=== PATIENT | male | born 1980 ===

== ENCOUNTER 2017-06-24 09:04 | Emergency (ER) | payer SELFPAY ==
[2017-06-24 09:05] VITALS: BMI 29.9
[2017-06-24 09:26] VITALS: RESP 16
[2017-06-24] MEDS ORDERED: Sodium Chloride 0.9% 1,000 ML IV STA (09:34)
[2017-06-24] MEDS ORDERED: Lidocaine 5% Patch TD STA (09:34)
--- NOTE | 2017-06-24 10:07 | ED PDOC ---
Lower Extremity Pain/Injury Time Seen by Provider: 06/24/17 09:20 Chief Complaint (Nursing): Lower Extremity Problem/Injury Chief Complaint (Provider): Right ankle pain History Per: Patient History/Exam Limitations: no limitations Onset/Duration Of Symptoms: Days (x 3) Current Symptoms Are (Timing): Still Present Additional Complaint(s): Bernardo is a 37 y/o male who presents to the ED complaining of right ankle pain, onset 3 days ago. Denies numbness, tingling, nausea, vomiting, and fever. Patient has a history of toe, foot, and knee pain to both lower extremities in the past. Seen here in the clinic and taking Allopurinol and Naprosyn, last dose was yesterday. Feels like his gout that he has had in the past. PMD: Unknown Past Medical History Reviewed: Historical Data, Nursing Documentation, Vital Signs Vital Signs: Last Vital Signs Temp 97 F L 06/24/17 09:23 Pulse 82 06/24/17 09:23 Resp 16 06/24/17 09:23 BP 131/76 06/24/17 09:23 Pulse Ox 99 06/24/17 09:23 - Medical History Other PMH: Gout - Surgical History Surgical History: Appendectomy - Family History Family History: States: Unknown Family Hx - Social History Current smoker - smoking cessation education provided: No Alcohol: Social Drugs: Denies - Home Medications Home Medications: Ambulatory Orders Medication Instructions Recorded Indomethacin [Indocin] 50 mg PO TID #42 cap 10/24/16 Ibuprofen [Motrin] 600 mg PO TID 7 Days 06/24/17 Methylprednisolone [Medrol Dose 4 mg PO DAILY #21 mg 06/24/17 Pack (21 tabs)] - Allergies Allergies/Adverse Reactions: Allergies Allergy/AdvReac Type Severity Reaction Status Date / Time No Known Allergies Allergy Verified 06/24/17 09:23 Review of Systems ROS Statement: Except As Marked, All Systems Reviewed And Found Negative Constitutional: Negative for: Fever Gastrointestinal: Negative for: Nausea, Vomiting, Diarrhea Musculoskeletal: Negative for: Foot Pain (Right ankle pain) Neurological: Negative for: Numbness, Other (Tingling) Physical Exam - Reviewed Nursing Documentation Reviewed: Yes Vital Signs Reviewed: Yes - Physical Exam Appears: Positive for: Non-toxic, No Acute Distress Head Exam: Positive for: ATRAUMATIC, NORMAL INSPECTION, NORMOCEPHALIC Skin: Positive for: Normal Color, Warm, Dry Neck: Positive for: Normal, Painless ROM, Supple Cardiovascular/Chest: Positive for: Regular Rate, Rhythm. Negative for: Murmur Respiratory: Positive for: Normal Breath Sounds. Negative for: Accessory Muscle Use, Respiratory Distress Pulses-Dorsalis Pedis (L): 2+ Pulses-Dorsalis Pedis (R): 2+ Pulses-Post. Tibialis (L): 2+ Pulses-Post. Tibialis (R): 2+ Extremity: Positive for: Normal ROM, Swelling (Mild swelling and tender to the anterior and medial ankle). Negative for: Tenderness (to the foot or toe), Other (erythema) Neurologic/Psych: Positive for: Alert, Oriented - Laboratory Results Result Diagrams: 06/24/17 10:30 06/24/17 10:44 Interpretation Of Abn Labs: no acute - ECG O2 Sat by Pulse Oximetry: 99 (RA) Pulse Ox Interpretation: Normal - Radiology X-Ray: Interpreted by Me, Viewed By Me X-Ray Interpretation: No Acute Disease - Progress ED Course And Treament: 1530: Stable. Podiatry saw pt. Did a pain med injection. Fu with them in 1 week. Medical Decision Making Medical Decision Making: Time: 09:43 Initial Plan: --CMP --Uric acid --CBC --Lidocaine 5% topical cream --NS IV 1000 ml at 1000 mls/hr --Toradol 15 mg IV --Tylenol 975 mg PO --Pending reevaluation Scribe Attestation: Documented by Melissa Cleary, acting as a scribe for Chetan Grubbs MD Provider Scribe Attestation: All medical record entries made by the Scribe were at my direction and personally dictated by me. I have reviewed the chart and agree that the record accurately reflects my personal performance of the history, physical exam, medical decision making, and the department course for this patient. I have also personally directed, reviewed, and agree with the discharge instructions and disposition. Disposition - Clinical Impression Clinical Impression: Gout - Patient ED Disposition Is Patient to be Admitted: No Counseled Patient/Family Regarding: Studies Performed, Diagnosis, Need For Followup, Rx Given - Disposition Referrals: Podiatry Clinic [Outside] - 07/01/17 Disposition: Routine/Home Disposition Time: 13:52 Condition: STABLE Additional Instructions: Return if not better in 3 days. Prescriptions: Ibuprofen [Motrin] 600 mg PO TID 7 Days Methylprednisolone [Medrol Dose Pack (21 tabs)] 4 mg PO DAILY #21 mg Instructions: Gout (ED) Forms: [employer] (Bengali) Print Language: SLOVAK
[2017-06-24 10:41] LABS: BASO # 0.1 K/uL (0.0-0.2); BASO % 0.8 % (0.0-2.0); EOS # 0.4 K/uL (0.0-0.7); HEMOGLOBIN 15.2 g/dL (12.0-18.0); LYMPH # 1.9 K/uL (1.0-4.3); LYMPH % 26.1 % (20.0-40.0); MEAN CELL VOLUME 89.2 fl (80.0-94.0); MEAN CORPUSCULAR HEMOGLOBIN 30.5 pg (27.0-31.0); MEAN CORPUSCULAR HGB CONC 34.2 g/dL (33.0-37.0); MEAN PLATELET VOLUME 8.7 fl (7.2-11.7); MONO # 0.6 K/uL (0.0-0.8); MONO % 8.1 % (0.0-10.0); NEUT # 4.4 K/uL (1.8-7.0); NRBC % 0.1 % (0.0-0.0); RBC 4.99 Mil/uL (4.40-5.90); RED CELL DISTRIBUTION WIDTH 13.8 % (11.5-14.5); WHITE BLOOD COUNT 7.3 K/uL (4.8-10.8)
[2017-06-24 11:15] LABS: ALB/GLOB RATIO 1.3 (1.0-2.1); ALBUMIN 4.1 g/dL (3.5-5.0); ALT/SGPT 35 U/L (21-72); AST/SGOT 28 U/L (17-59); BLOOD UREA NITROGEN 12 mg/dl (9-20); CALCIUM 9.7 mg/dL (8.4-10.2); GFR AFRICAN-AMERICAN > 60; GFR NON-AFRICAN AMERICAN > 60; URIC ACID 7.9 mg/Dl (3.5-8.5)
[2017-06-24] MEDS ORDERED: Morphine 4 MG/ML VIAL IV ONE (12:58)
[2017-06-24] MEDS ORDERED: Morphine 4 MG/ML VIAL ONE (14:12)
[2017-06-24] MEDS ORDERED: Lidocaine 1% Inj (20ml) IJ ONE (14:19)
[2017-06-24] MEDS ORDERED: MethylPREDNISolone Depo 40 mg/ml Inj IM ONE (14:19)
--- NOTE | 2017-06-24 14:30 | RAD ---
PROCEDURE: Right ankle Radiographs. HISTORY: pain COMPARISON: None. FINDINGS: BONES: Normal. No fracture. JOINTS: Normal. No dislocation. SOFT TISSUES: Lateral ankle sprain. OTHER FINDINGS: None. IMPRESSION: Lateral ankle sprain.
[2017-06-24] MEDS ORDERED: Lidocaine 1% Inj (20ml) ONE (15:42)
[2017-06-24] MEDS ORDERED: MethylPREDNISolone Depo 40 mg/ml Inj ONE (15:42)
[2017-06-24 16:24] VITALS: BP 118/77; PULSE 65; TEMP 98.1; O2SAT 98
--- NOTE | 2017-06-24 19:42 | CP.PCM.CON ---
History of Present Illness - History of Present Illness History of Present Illness: 37 year old male with PMH of gout and gouty attacks present to the ED for right ankle pain. Patient denies any trauma or fall. States that pain started 5 days ago, but 3 days ago, the pain became unbearable. He describes the pain as an achy pain, worse with ambulation. Patient reports the pain is similar to the previous gouty attacks he has had in the past: his right knee and right 1st MPJ. He states that he is currently talking Allopurinol to manage his gout. He states that he drinks socially; avoid eating too much red meats, reports chicken in his main diet. He denies n/v/sob/cp/chills or f. PMH: gout PSH: appendectomy FH: denies SH: denies smoking, denies elicited drug use, admits to socially drinking Allergies: none Meds: allopurinol Review of Systems - Constitutional Constitutional: As Per HPI Past Patient History - Infectious Disease Hx of Infectious Diseases: None - Past Medical History & Family History Past Medical History?: Yes - Past Social History Alcohol: Social Drugs: Denies - MUSCULOSKELETAL/RHEUMATOLOGICAL Hx Musculoskeletal Disorders: Yes Hx Gout: Yes - PSYCHIATRIC Hx Psychophysiologic Disorder: No Hx Substance Use: No - SURGICAL HISTORY Hx Appendectomy: Yes - ANESTHESIA Hx Anesthesia: Yes Hx Anesthesia Reactions: No Meds Home Medications: Home Medication List Medication Instructions Recorded Confirmed Type Ibuprofen [Motrin] 600 mg PO TID 7 Days 06/24/17 Rx Methylprednisolone [Medrol Dose 4 mg PO DAILY #21 mg 06/24/17 Rx Pack (21 tabs)] Allergies/Adverse Reactions: Allergies Allergy/AdvReac Type Severity Reaction Status Date / Time No Known Allergies Allergy Verified 06/24/17 09:23 Physical Exam - Constitutional Appears: Well, Non-toxic, No Acute Distress - Extremities Exam Additional comments: Vasc: DP and PT 2/4 bilaterally, TG WNL, [employer] <3 seconds to digits x10, no edema noted bilaterally Ortho: severe pain ilicted upon palpation of the R ankle medial glutter; severe pain ilicited with R ankle inversion at medial ankle joint, no pain elicited with ankle dorsiflexion, plantarflexion, or eversion, MM is 5/5 in all four compartments, no pain with palpation of the deltoid ligaments Neuro: sensation intact bilaterally Derm: no open lesions, no erythema, no local signs of infection noted, skin is hydrated - Neurological Exam Neurological exam: Alert, Oriented x3 - Psychiatric Exam Psychiatric exam: Normal Affect, Normal Mood Results - Vital Signs Recent Vital Signs: Last Vital Signs Temp 98.1 F 06/24/17 16:20 Pulse 65 06/24/17 16:20 Resp 16 06/24/17 16:20 BP 118/77 06/24/17 16:20 Pulse Ox 98 06/24/17 16:20 - Labs Result Diagrams: 06/24/17 10:30 06/24/17 10:44 Labs: Laboratory Results - last 24 hr 06/24/17 06/24/17 10:30 10:44 WBC 7.3 RBC 4.99 Hgb 15.2 Hct 44.5 MCV 89.2 MCH 30.5 MCHC 34.2 RDW 13.8 Plt Count 214 MPV 8.7 Neut % (Auto) 60.0 Lymph % (Auto) 26.1 [place] % (Auto) 8.1 Eos % (Auto) 5.0 H Baso % (Auto) 0.8 Neut # 4.4 Lymph # 1.9 [place] # 0.6 Eos # 0.4 Baso # 0.1 Sodium 139 Potassium 4.1 Chloride 104 Carbon Dioxide 26 Anion Gap 14 BUN 12 Creatinine 1.0 Est GFR ( Amer) > 60 Est GFR (Non-Af Amer) > 60 Random Glucose 98 Uric Acid 7.9 Calcium 9.7 Total Bilirubin 0.6 AST 28 ALT 35 Alkaline Phosphatase 103 Total Protein 7.3 Albumin 4.1 Globulin 3.2 Albumin/Globulin Ratio 1.3 Assessment & Plan - Assessment and Plan (Free Text) Assessment: 37 year old male with PMH of gout present to the ED for right ankle pain most consistent with and secondary to gouty attack Plan: Patient was seen and examined Plan discussed in detail with attending Dr. Dinero Vitals, labs, and chart reviewed (afebrile, absent leucocytosis, uric acid: 7.9) X-ray reviewed- WNL Explained to pt treatment options, pt agreeed to intra-articular injection of right ankle All pt's questions were answered to satisfaction No guarantees were made Pt understands all risks, benefits and complications of procedure Skin prep with betadine and total of 2 cc was injected to medial glutter of right ankle joint consisting of 1.5cc 1% lidocaine plain and .5 cc of depomedrol 40; Patient tolerated the procedure well and without complications Rx Medrol dose jose and instructed on use Recommend Ibuprofen for pain F/U PCP on gout management F/U in podiatry clinic in 1 week Thank you for the consult
== END 2017-06-24 16:20 | disposition home or self-care (01) ==
LOC: H.ER 09:04
DX: M10.9 Gout, unspecified (principal)

== ENCOUNTER 2017-07-19 11:39 | Emergency (ER) | payer SELFPAY ==
[2017-07-19] MEDS ORDERED: Iohexol 240 (50 ml) PO ONE (12:00)
[2017-07-19] MEDS ORDERED: Sodium Chloride 0.9% 1,000 ML IV STA (12:00)
--- NOTE | 2017-07-19 12:03 | ED PDOC ---
HPI: Abdomen Time Seen by Provider: 07/19/17 11:53 Chief Complaint (Provider): diarrhea History Per: Patient History/Exam Limitations: no limitations Onset/Duration Of Symptoms: Days (4), Persistent Outside of [place] travel?: No Current Symptoms Are (Timing): Still Present Context: Food (ate Fish noted afterwards abd pain and diarrhea) Location Of Pain/Discomfort: LLQ Quality Of Discomfort: Cramping, Pressure Associated Symptoms: Fever, Diarrhea, Loss Of Appetite. denies: Chills, Nausea , Vomiting, Back Pain, Chest Pain, Constipation, Urinary Symptoms Exacerbating Factors: Food Last Bowel Movement: Today Past Medical History Reviewed: Historical Data, Nursing Documentation, Vital Signs - Medical History PMH: No Chronic Diseases - Surgical History Surgical History: Appendectomy - Family History Family History: States: Unknown Family Hx - Home Medications Home Medications: Ambulatory Orders Medication Instructions Recorded Indomethacin [Indocin] 50 mg PO TID #42 cap 10/24/16 Ibuprofen [Motrin] 600 mg PO TID 7 Days 06/24/17 Methylprednisolone [Medrol Dose 4 mg PO DAILY #21 mg 06/24/17 Pack (21 tabs)] Ciprofloxacin HCl [Cipro] 500 mg PO BID #14 tab 07/19/17 Dicyclomine [Bentyl] 20 mg PO TID #30 tab 07/19/17 metroNIDAZOLE [Flagyl] 500 mg PO BID #14 tab 07/19/17 - Allergies Allergies/Adverse Reactions: Allergies Allergy/AdvReac Type Severity Reaction Status Date / Time No Known Allergies Allergy Verified 06/24/17 09:23 Review of Systems ROS Statement: Except As Marked, All Systems Reviewed And Found Negative Constitutional: Positive for: Fever, Chills Gastrointestinal: Positive for: Abdominal Pain, Diarrhea. Negative for: Nausea , Vomiting Physical Exam - Reviewed Nursing Documentation Reviewed: Yes Vital Signs Reviewed: Yes - Physical Exam Appears: Positive for: Non-toxic, No Acute Distress Head Exam: Positive for: ATRAUMATIC, NORMAL INSPECTION, NORMOCEPHALIC Skin: Positive for: Normal Color, Warm, DRY Cardiovascular/Chest: Positive for: Regular Rate, Rhythm Respiratory: Positive for: CNT, Normal Breath Sounds Gastrointestinal/Abdominal: Positive for: Bowel Sounds, Soft, Tenderness (LLQ). Negative for: Organomegaly, Mass, Distended, Guarding Back: Positive for: Normal Inspection. Negative for: L CVA Tenderness, R CVA Tenderness Extremity: Positive for: Normal ROM Neurologic/Psych: Positive for: Alert, Oriented - Laboratory Results Result Diagrams: 07/19/17 12:10 07/19/17 12:10 - Progress ED Course And Treament: entritis vs colitis CT scan with PO/IV contrast cbc/cmp/UA NSfluids pepcid cristobalan re-eval Medical Decision Making Medical Decision Making: noted: hematuira. on CT: colitis noted. pt will be d/c with bent and flag and cipro [facility]. stable vs and improved symptoms upon d/c Disposition - Clinical Impression Clinical Impression: Colitis - Patient ED Disposition Is Patient to be Admitted: No Counseled Patient/Family Regarding: Studies Performed, Diagnosis, Need For Followup, Rx Given - Disposition Referrals: [facility] [Outside] [facility] [Outside] Disposition: Routine/Home Disposition Time: 16:39 Condition: STABLE Prescriptions: Ciprofloxacin HCl [Cipro] 500 mg PO BID #14 tab Dicyclomine [Bentyl] 20 mg PO TID #30 tab metroNIDAZOLE [Flagyl] 500 mg PO BID #14 tab Instructions: Colitis (ED), Infectious Colitis (ED) Forms: [employer] (Bangladeshi), [facility] ED School/Work Excuse Print Language: SERBIAN
[2017-07-19] MEDS ORDERED: Iohexol 240 (50 ml) ONE (12:21)
[2017-07-19 12:25] LABS: BASO % 0.6 % (0.0-2.0); EOS # 0.1 K/uL (0.0-0.7); EOS % 1.2 % (0.0-4.0); HEMATOCRIT 46.2 % (35.0-51.0); LYMPH # 1.9 K/uL (1.0-4.3); LYMPH % 41.1 % (20.0-40.0); MEAN CELL VOLUME 88.8 fl (80.0-94.0); MEAN CORPUSCULAR HEMOGLOBIN 30.1 pg (27.0-31.0); MEAN CORPUSCULAR HGB CONC 33.8 g/dL (33.0-37.0); MEAN PLATELET VOLUME 8.7 fl (7.2-11.7); MONO # 0.5 K/uL (0.0-0.8); MONO % 11.7 % (0.0-10.0); NEUT % 45.4 % (50.0-75.0); NRBC % 0.7 % (0.0-0.0); RED CELL DISTRIBUTION WIDTH 13.7 % (11.5-14.5); WHITE BLOOD COUNT 4.5 K/uL (4.8-10.8)
[2017-07-19 12:31] LABS: ALB/GLOB RATIO 1.3 (1.0-2.1); ALKALINE PHOSPHATASE 88 U/L (38-126); ALT/SGPT 61 U/L (21-72); AST/SGOT 43 U/L (17-59); BILIRUBIN,TOTAL 0.7 mg/dl (0.2-1.3); BLOOD UREA NITROGEN 14 mg/dl (9-20); CALCIUM 9.5 mg/dL (8.4-10.2); CARBON DIOXIDE 26 mmol/L (22-30); CHLORIDE 103 mmol/L (98-107); GFR AFRICAN-AMERICAN > 60; GLUCOSE,RANDOM 98 mg/dL (75-110); POTASSIUM 3.8 MMOL/L (3.6-5.0); SODIUM 140 mmol/l (132-148); TOTAL PROTEIN 7.3 G/DL (6.3-8.2)
[2017-07-19 12:38] VITALS: BMI 30.4
[2017-07-19 12:49] LABS: RBC URINE 11 /hpf (0-3); URINE BILIRUBIN NEGATIVE (NEGATIVE); URINE BLOOD MODERATE (NEGATIVE); URINE COLOR YELLOW (YELLOW); URINE GLUCOSE (UA) NEG (Normal); URINE KETONE NEGATIVE (NEGATIVE); URINE LEUKOCYTE ESTERASE NEG Leu/uL (Negative); URINE PROTEIN 100 mg/dL (NEGATIVE); URINE UROBILINOGEN 0.2-1.0 mg/dL (0.2-1.0); WBC URINE 1 /hpf (0-5)
--- NOTE | 2017-07-19 16:35 | CT ---
PROCEDURE: CT abdomen pelvis dated 07/19/2017 HISTORY: LLQ pain COMPARISON: None. TECHNIQUE: Contiguous axial images of the abdomen and p pelvis performed following oral and intravenous injection of approximately 100 cc of Omnipaque 300 contrast material. . Coronal and Sagittal reformats generated. Radiation dose: Total exam DLP = mGy-cm. This CT exam was performed using one or more of the following dose reduction techniques: Automated exposure control, adjustment of the mA and/or kV according to patient size, and/or use of iterative reconstruction technique. FINDINGS: LOWER THORAX: Mild atelectasis both posterior lower lung santos. No evidence of effusion or basilar pneumothorax. Heart size appears borderline/mildly enlarged. No significant pericardial effusion. Small hiatal hernia with slight wall thickening of the distal esophagus that could be due to protrusion of gastric mucosa. Possibility of esophagitis not excluded. . LIVER: Liver is enlarged measuring approximately 21 cm in CC dimension. . Minimal diffuse fatty hepatic infiltration. No evidence of obvious hepatic mass or collection. Portal and splenic veins are opacified. No evidence of GALLBLADDER AND BILE DUCTS: The gallbladder is physiologically distended. No evidence of intraluminal gallbladder calculi. No gross intra or extrahepatic biliary ductal dilatation. . PANCREAS: Pancreas appears grossly unremarkable without mass collection or calcification. SPLEEN: Spleen exhibits normal size and attenuation pattern without mass collection or calcification. ADRENALS: No adrenal lesions. KIDNEYS AND URETERS: Kidneys demonstrate symmetric nephrograms. No evidence of nephrolithiasis or hydronephrosis. BLADDER: Urinary bladder is incompletely distended which presumably accounts for slight thick-walled appearance. Muscular hypertrophy may contribute. The possibility of a cystitis not excluded. REPRODUCTIVE: Prostate gland appears grossly unremarkable. APPENDIX: What is felt to represent the appendix best seen on axial image number [id number]. Appendix measures approximately 6 mm in greatest diameter any exhibits a minimal thick-walled appearance. Questionable small calcifications along the terminal and of the abdomen appendix. No obvious inflammatory changes in the adjacent mesentery. Clinical correlation recommended. . BOWEL: Evaluation of the bowel is somewhat limited due to incomplete opacification. Stomach is incompletely distended which presumably accounts for thick-walled appearance. Possibility of a gastritis not excluded. Visualized loops of small bowel exhibit normal contour and caliber. No evidence of acute mechanical small bowel obstruction with oral contrast material extending into the colon to the level of the rectum. There is wall thickening of the distal transverse descending and sigmoid colon to the level of the rectum consistent with nonspecific colitis. Rule out infectious versus inflammatory etiology. . . Note also made of a few colonic diverticula along the splenic flexure region. PERITONEUM: No evidence of gross free intraperitoneal air or fluid. No drainable fluid collections. There is a small fat containing umbilical hernia. LYMPH NODES: . Several small lymph nodes right lower quadrant of the abdomen possibly reactive however mesenteric adenitis not excluded. VASCULATURE: Unremarkable. No aortic aneurysm. BONES: No fracture or destructive lesion. OTHER FINDINGS: None. IMPRESSION: Findings consistent with nonspecific colitis (inflammatory and/or infectious etiologies to be considered) involving the distal transverse descending sigmoid colon and rectum. . The appendix measures approximately 6 mm in greatest diameter with minimal thick-walled appearance. There also appears to be some calcification along the the terminal end of the appendix. No obvious inflammatory changes in the adjacent mesentery to suggest acute appendicitis at this time however clinical correlation recommended as these findings are equivocal for acute appendicitis. Hepatomegaly with mild fatty hepatic infiltration. Urinary bladder is thick-walled in appearance likely due to underdistention. Muscular hypertrophy presumably contributes. Possibility of a cystitis not excluded.
[2017-07-19 17:19] VITALS: BP 123/78; PULSE 87; RESP 19; TEMP 98.2; O2SAT 100
== END 2017-07-19 17:19 | disposition home or self-care (01) ==
LOC: H.ER 11:39
DX: K52.9 Noninfective gastroenteritis and colitis, unspecified (principal)
CPT/HCPCS: 74177; 80053; 81003; 85025; 96374; 96375; 99283; J2405; J7040; Q9966